=== PATIENT | male | born 1935 | race Caucasian/White ===

== ENCOUNTER → 2016-10-11 | Outpatient (CLI) | payer OTHER ==
[2016-10-11 09:41] LABS: Urine RBC None Seen /hpf (0 - 3)
[2016-10-11 10:06] LABS: Basophils # (auto) 0.1 uL; Basophils % (auto) 0.6 % (0.0-2.0); DEFINITIVE VIEW TRANSMISSION; Eosinophils # (auto) 0.4 uL; Eosinophils % (auto) 2.9 % (0.0-7.0); Hematocrit 43.3 % (41.0-53.0); Hemoglobin 14.1 g/dL (13.5-17.5); Lymphocytes # (auto) 6.4 uL; Lymphocytes % (auto) 46.5 % (10.0-50.0); Mean Corpuscular Hemoglobin 28.7 pg (28.0-32.0); Mean Corpuscular Hgb Conc. 32.7 g/dL (32.0-36.0); Mean Corpuscular Volume 87.9 fL (80.0-100.0); Mean Platelet Volume 8.4 fL (7.4-10.4); Monocytes % (auto) 6.9 % (0.0-12.0); Neutrophils % (auto) 43.1 % (37.0-80.0); Platelet Count (auto) 358 10^3/uL (140-450); Red Cell Distribution Width 14.9 % (11.6-16.0); White Blood Cell 13.8 10^3/uL (4.4-10.8)
[2016-10-11 10:13] LABS: Urine Bilirubin Negative (Negative); Urine Blood Negative /uL (Negative); Urine Color Yellow (Yellow); Urine Glucose Normal (Normal); Urine Ketone Negative (Negative); Urine Nitrite Negative (Negative); Urine Squamous Epithelial Cell FEW /hpf (<5); Urine Urobilinogen Normal (Negative)
[2016-10-11 11:04] LABS: Albumin 3.9 g/dL (3.4-5.0); BUN/Creatinine Ratio 18.5; Bilirubin, Total 0.4 mg/dL (0.2-1.0); Calcium 9.4 mg/dL (8.5-10.1); Potassium 4.2 mmol/L (3.5-5.1); Total Protein 7.7 g/dL (6.4-8.2); Uric Acid 4.4 mg/dL (3.5-7.2)
== END | disposition home or self-care (01) ==
LOC: LAB 07:43
DX: I10 Essential (primary) hypertension (principal); C91.10 Chronic lymphocytic leukemia of B-cell type not having achieved remission; M10.9 Gout, unspecified
CPT/HCPCS: 36415; 80053; 80061; 81001; 84443; 84550; 85025

== ENCOUNTER → 2016-11-22 | Outpatient (CLI) | payer OTHER ==
[2016-11-22 10:44] LABS: Basophils # (auto) 0.1 uL; Basophils % (auto) 0.8 % (0.0-2.0); Eosinophils # (auto) 0.4 uL; Eosinophils % (auto) 2.8 % (0.0-7.0); Hematocrit 43.8 % (41.0-53.0); Lymphocytes # (auto) 4.4 uL; Lymphocytes % (auto) 33.2 % (10.0-50.0); Mean Corpuscular Hemoglobin 28.3 pg (28.0-32.0); Mean Corpuscular Volume 88.6 fL (80.0-100.0); Mean Platelet Volume 7.5 fL (7.4-10.4); Monocytes # (auto) 1.2 uL; Monocytes % (auto) 8.9 % (0.0-12.0); Neutrophils # (auto) 7.2 uL; Neutrophils % (auto) 54.3 % (37.0-80.0); Platelet Count (auto) 382 10^3/uL (140-450); Red Cell Distribution Width 15.3 % (11.6-16.0); White Blood Cell 13.2 10^3/uL (4.4-10.8)
[2016-11-22 11:14] LABS: Albumin 3.8 g/dL (3.4-5.0); BUN/Creatinine Ratio 19.6; Bilirubin, Total 0.3 mg/dL (0.2-1.0); Calcium 9.3 mg/dL (8.5-10.1); Potassium 4.4 mmol/L (3.5-5.1); Total Protein 7.4 g/dL (6.4-8.2)
== END | disposition home or self-care (01) ==
LOC: LAB 09:32
PROVIDERS: ATTEND Internal Medicine
DX: Z88.6 Allergy status to analgesic agent (principal)
CPT/HCPCS: 36415; 80053; 83615; 85025

== ENCOUNTER → 2016-12-11 | Outpatient (CLI) | payer OTHER ==
[~2016-12-11] MED LIST: ALBUTEROL SULF 2.5 MG/0.5ML(0.5%) NEB SOLN ONE
== END | disposition home or self-care (01) ==
LOC: RT 10:39
PROVIDERS: ATTEND Internal Medicine Pulmonary Disease
DX: J84.10 Pulmonary fibrosis, unspecified (principal)
CPT/HCPCS: 94060; 94640

== ENCOUNTER → 2017-02-13 | Outpatient (CLI) | payer OTHER ==
[2017-02-13 09:41] LABS: Urine Bilirubin Negative (Negative); Urine Blood Negative /uL (Negative); Urine Color Yellow (Yellow); Urine Glucose Normal (Normal); Urine Ketone Negative (Negative); Urine Nitrite Negative (Negative); Urine RBC <1 /hpf (0 - 3); Urine Squamous Epithelial Cell FEW /hpf (<5); Urine Urobilinogen Normal (Negative); Urine pH 5.5 (5.0-8.0)
[2017-02-13 09:42] LABS: Basophils # (auto) 0.1 uL; Basophils % (auto) 0.5 % (0.0-2.0); CONDITION Y; Eosinophils # (auto) 0.6 uL; Eosinophils % (auto) 3.9 % (0.0-7.0); Hematocrit 45.7 % (41.0-53.0); Hemoglobin 15.1 g/dL (13.5-17.5); Lymphocytes # (auto) 5.5 uL; Mean Corpuscular Hemoglobin 28.7 pg (28.0-32.0); Mean Corpuscular Volume 87.1 fL (80.0-100.0); Mean Platelet Volume 8.2 fL (7.4-10.4); Monocytes # (auto) 1.1 uL; Monocytes % (auto) 7.2 % (0.0-12.0); Neutrophils # (auto) 7.6 uL; Neutrophils % (auto) 51.4 % (37.0-80.0); Platelet Count (auto) 369 10^3/uL (140-450); Red Cell Distribution Width 14.9 % (11.6-16.0); White Blood Cell 14.8 10^3/uL (4.4-10.8)
[2017-02-13 10:17] LABS: Albumin 3.9 g/dL (3.4-5.0); BUN/Creatinine Ratio 21.3; Bilirubin, Total 0.4 mg/dL (0.2-1.0); Calcium 9.6 mg/dL (8.5-10.1); Potassium 4.4 mmol/L (3.5-5.1); Total Protein 7.5 g/dL (6.4-8.2)
== END | disposition home or self-care (01) ==
LOC: LAB 08:51
PROVIDERS: ATTEND Internal Medicine
DX: I10 Essential (primary) hypertension (principal); M10.9 Gout, unspecified
CPT/HCPCS: 36415; 80053; 80061; 81001; 84443; 84550; 85025

== ENCOUNTER → 2017-05-17 | Outpatient (CLI) | payer OTHER ==
[2017-05-17 07:42] LABS: Basophils # (auto) 0.1 uL; Basophils % (auto) 0.8 % (0.0-2.0); Eosinophils # (auto) 0.5 uL; Eosinophils % (auto) 3.3 % (0.0-7.0); Hematocrit 42.4 % (41.0-53.0); Lymphocytes # (auto) 6.1 uL; Lymphocytes % (auto) 43.1 % (10.0-50.0); Mean Corpuscular Hemoglobin 29.8 pg (28.0-32.0); Mean Corpuscular Volume 90.3 fL (80.0-100.0); Mean Platelet Volume 6.9 fL (6.9-10.8); Monocytes # (auto) 1.2 uL; Monocytes % (auto) 8.2 % (0.0-12.0); Neutrophils # (auto) 6.3 uL; Neutrophils % (auto) 44.6 % (37.0-80.0); Nucleated Red Blood Cells % 0.1 %; Platelet Count (auto) 313 10^3/uL (140-450); Red Cell Distribution Width 14.8 % (11.8-14.3); White Blood Cell 14.1 10^3/uL (4.4-10.8)
[2017-05-17 08:05] LABS: BUN/Creatinine Ratio 17.5; Bilirubin, Total 0.4 mg/dL (0.2-1.0); Potassium 4.4 mmol/L (3.5-5.1); Total Protein 7.8 g/dL (6.4-8.2)
== END ==
LOC: LAB 07:29
PROVIDERS: ATTEND Internal Medicine
DX: C91.10 Chronic lymphocytic leukemia of B-cell type not having achieved remission (principal)
CPT/HCPCS: 36415; 80053; 83615; 85025

== ENCOUNTER 2017-06-21 11:36 | Emergency (ER) | payer OTHER ==
[~2017-06-21] VITALS: Ht 172.7 cm; Wt 83.9 kg
[2017-06-21 11:53] VITALS: BP 106/57
== END 2017-06-21 12:10 | disposition left against medical advice (07) ==
LOC: ER 11:36
DX: R06.02 Shortness of breath (principal); Z53.21 Procedure and treatment not carried out due to patient leaving prior to being seen by health care provider
CPT/HCPCS: 93005

== ENCOUNTER → 2017-06-21 | Outpatient (CLI) | payer OTHER ==
[2017-06-21 12:25] LABS: Albumin 4.1 g/dL (3.4-5.0); Bilirubin, Direct 0.2 mg/dL (0-0.2); Bilirubin, Total 0.4 mg/dL (0.2-1.0); Total Protein 8.1 g/dL (6.4-8.2)
== END | disposition home or self-care (01) ==
LOC: LAB 11:12
PROVIDERS: ATTEND Internal Medicine Pulmonary Disease
DX: J84.112 Idiopathic pulmonary fibrosis (principal)
CPT/HCPCS: 36415; 80076

== ENCOUNTER 2017-08-08 14:51 | Inpatient (IN) | payer OTHER ==
[~2017-08-08] VITALS: Ht 172.7 cm; Wt 71.2 kg
[2017-08-08] MEDS ORDERED: FUROSEMIDE 40 MG/4 ML VIAL IV ONE (15:30)
[2017-08-08 15:44] LABS: Basophils # (auto) 0.1 uL; Basophils % (auto) 1.3 % (0.0-2.0); Eosinophils # (auto) 0.3 uL; Eosinophils % (auto) 2.4 % (0.0-7.0); Hematocrit 43.6 % (41.0-53.0); Lymphocytes # (auto) 2.8 uL; Lymphocytes % (auto) 26.2 % (10.0-50.0); Mean Corpuscular Hemoglobin 29.2 pg (28.0-32.0); Mean Corpuscular Hgb Conc. 32.2 g/dL (32.0-36.0); Mean Corpuscular Volume 90.7 fL (80.0-100.0); Monocytes % (auto) 9.2 % (0.0-12.0); Neutrophils # (auto) 6.5 uL; Neutrophils % (auto) 60.9 % (37.0-80.0); Nucleated Red Blood Cells % 0.3 %; Platelet Count (auto) 295 10^3/uL (140-450); Red Blood Cells 4.81 10^6/uL (4.5-5.90); Red Cell Distribution Width 15.1 % (11.8-14.3); White Blood Cell 10.7 10^3/uL (4.4-10.8)
[2017-08-08 15:59] LABS: Albumin 3.5 g/dL (3.4-5.0); BUN/Creatinine Ratio 15.3; Calcium 8.8 mg/dL (8.5-10.1); Magnesium 2.3 mg/dL (1.6-2.6); Potassium 4.5 mmol/L (3.5-5.1)
[2017-08-08 16:04] LABS: Bilirubin, Total 0.4 mg/dL (0.2-1.0); Total Protein 7.2 g/dL (6.4-8.2)
[2017-08-08] MEDS ORDERED: FENO1TAB42 PO (18:23)
[2017-08-08] MEDS ORDERED: NINT1CAP2 PO (18:23)
[2017-08-08] MEDS ORDERED: CARV3.1240 PO (18:23)
[2017-08-08] MEDS ORDERED: LACTULOSE 20Gm/30ML SOLN PO PRN (20:30)
[2017-08-08] MEDS ORDERED: NITROGLYCERIN 0.4 MG SL TAB SL PRN (20:30)
[2017-08-08] MEDS ORDERED: MORPHINE SULFATE 4 MG/ML SYR/VIAL IV PRN (20:30)
[2017-08-08] MEDS ORDERED: PANTOPRAZOLE 40 MG/10 ML VIAL IV ONE (21:00)
[2017-08-08] MEDS ORDERED: ASPirin 81 mg TAB PO ONE (21:00)
[2017-08-08] MEDS: ENOXAPARIN SOD 30 MG/0.3 ML SYRINGE SC SCH (21:54)
[2017-08-08 22:00] VITALS: BP 161/79
[2017-08-08] MEDS: CARVEDILOL 3.125 MG TAB PO SCH (22:00)
[2017-08-08] MEDS: ATORVASTATIN 20 MG TAB PO SCH (22:00)
[2017-08-08 22:30] VITALS: BP 161/79
[2017-08-08] MEDS ORDERED: ASPI-492 PO (22:40)
[2017-08-09 05:00] VITALS: BP 135/61
[2017-08-09] MEDS ORDERED: FUROSEMIDE 40 MG/4 ML VIAL IV SCH (06:00)
[2017-08-09 06:21] LABS: Basophils # (auto) 0.1 uL; Basophils % (auto) 1.3 % (0.0-2.0); Eosinophils # (auto) 0.3 uL; Eosinophils % (auto) 3.2 % (0.0-7.0); Hematocrit 40.2 % (41.0-53.0); Hemoglobin 13.2 g/dL (13.5-17.5); Lymphocytes # (auto) 3.2 uL; Lymphocytes % (auto) 34.4 % (10.0-50.0); Mean Corpuscular Hemoglobin 29.3 pg (28.0-32.0); Mean Corpuscular Hgb Conc. 32.7 g/dL (32.0-36.0); Mean Corpuscular Volume 89.5 fL (80.0-100.0); Monocytes # (auto) 0.8 uL; Monocytes % (auto) 9.2 % (0.0-12.0); Neutrophils # (auto) 4.8 uL; Neutrophils % (auto) 51.9 % (37.0-80.0); Nucleated Red Blood Cells % 0.2 %; Platelet Count (auto) 256 10^3/uL (140-450); Red Blood Cells 4.49 10^6/uL (4.5-5.90); Red Cell Distribution Width 14.4 % (11.8-14.3); White Blood Cell 9.2 10^3/uL (4.4-10.8)
[2017-08-09 06:40] LABS: Albumin 3.4 g/dL (3.4-5.0); BUN/Creatinine Ratio 16.3; Bilirubin, Total 0.6 mg/dL (0.2-1.0); Calcium 8.5 mg/dL (8.5-10.1); Potassium 4.1 mmol/L (3.5-5.1); Total Protein 6.4 g/dL (6.4-8.2)
[2017-08-09 09:00] VITALS: BP 120/60
[2017-08-09] MEDS ORDERED: POTASSIUM CHL 20 Meq TABLET PO ONE (09:45)
[2017-08-09] MEDS ORDERED: FUROSEMIDE 20 MG/2 ML VIAL IV ONE (09:45)
[2017-08-09] MEDS ORDERED: METOPROLOL SUCCINATE XL 50 MG TAB PO SCH (10:00)
[2017-08-09] MEDS: PANTOPRAZOLE 40 MG/10 ML VIAL IV SCH (10:05)
[2017-08-09] MEDS: ASPirin 81 mg TAB PO SCH (10:06)
[2017-08-09] MEDS: CARVEDILOL 3.125 MG TAB PO SCH ×2 (10:09→21:57)
[2017-08-09 13:00] VITALS: BP 126/70
[2017-08-09 17:00] VITALS: BP 157/75
[2017-08-09] MEDS: FUROSEMIDE 40 MG/4 ML VIAL IV SCH (18:17)
[2017-08-09 20:00] VITALS: BP 135/79
[2017-08-09] MEDS: ENOXAPARIN SOD 30 MG/0.3 ML SYRINGE SC SCH (21:03)
[2017-08-09 21:54] VITALS: BP 135/79
[2017-08-09] MEDS: ATORVASTATIN 20 MG TAB PO SCH (21:57)
[2017-08-10 04:42] VITALS: BP 121/57
[2017-08-10 06:04] LABS: BUN/Creatinine Ratio 18.1; Calcium 9.1 mg/dL (8.5-10.1); Potassium 3.4 mmol/L (3.5-5.1)
[2017-08-10] MEDS: FUROSEMIDE 40 MG/4 ML VIAL IV SCH (06:09)
[2017-08-10 08:16] VITALS: BP 118/76
[2017-08-10] MEDS: ASPirin 81 mg TAB PO SCH (09:17)
[2017-08-10] MEDS: CARVEDILOL 3.125 MG TAB PO SCH (09:17)
[2017-08-10] MEDS: PANTOPRAZOLE 40 MG/10 ML VIAL IV SCH (09:17)
[2017-08-10] MEDS ORDERED: POTASSIUM CHL 20 Meq TABLET PO ONE (09:45)
[2017-08-10 11:42] VITALS: BP 104/65
[2017-08-10 16:38] VITALS: BP 102/65
[2017-08-10] MEDS: ENOXAPARIN SOD 30 MG/0.3 ML SYRINGE SC SCH (21:11)
[2017-08-10 21:36] VITALS: BP 118/62
[2017-08-10 21:40] VITALS: BP 118/62
== END 2017-08-10 22:50 | disposition home or self-care (01) | DRG 291 ==
LOC: EDBD 14:51 → ER 14:56 → TELE 14:57 → TELE-WESTW 22:05
PROVIDERS: ADMIT Family Medicine; ATTEND Internal Medicine Pulmonary Disease
DX: I11.0 Hypertensive heart disease with heart failure (principal); J96.21 Acute and chronic respiratory failure with hypoxia; N17.9 Acute kidney failure, unspecified; I24.8 Other forms of acute ischemic heart disease; E44.1 Mild protein-calorie malnutrition; I25.5 Ischemic cardiomyopathy; J84.112 Idiopathic pulmonary fibrosis; E78.00 Pure hypercholesterolemia, unspecified; E87.6 Hypokalemia; I25.10 Atherosclerotic heart disease of native coronary artery without angina pectoris; K59.00 Constipation, unspecified; E78.5 Hyperlipidemia, unspecified; I50.43 Acute on chronic combined systolic (congestive) and diastolic (congestive) heart failure; Z85.6 Personal history of leukemia; Z95.1 Presence of aortocoronary bypass graft; Z99.81 Dependence on supplemental oxygen; Z90.89 Acquired absence of other organs; Z98.62 Peripheral vascular angioplasty status; Z79.82 Long term (current) use of aspirin; Z79.899 Other long term (current) drug therapy; Z68.23 Body mass index [BMI] 23.0-23.9, adult
CPT/HCPCS: 36415; 71010; 80048; 80053; 80061; 83735; 83880; 84484; 85025; 85379; 93005; 93306; 96372; 96374; 96375; 99291; C9113

== ENCOUNTER → 2017-08-27 | Outpatient (CLI) | payer OTHER ==
[~2017-08-27] MED LIST changes: -ALBUTEROL SULF 2.5 MG/0.5ML(0.5%) NEB SOLN ONE; +ASPI-492 PO; +CARV3.1240 PO; +FENO1TAB42 PO; +NINT1CAP2 PO
[2017-08-27 07:43] LABS: Basophils # (auto) 0.1 uL; Basophils % (auto) 1.2 % (0.0-2.0); Eosinophils # (auto) 0.5 uL; Eosinophils % (auto) 4.5 % (0.0-7.0); Hematocrit 51.1 % (41.0-53.0); Hemoglobin 16.2 g/dL (13.5-17.5); Lymphocytes # (auto) 5.1 uL; Lymphocytes % (auto) 42.2 % (10.0-50.0); Mean Corpuscular Hemoglobin 28.2 pg (28.0-32.0); Mean Corpuscular Hgb Conc. 31.7 g/dL (32.0-36.0); Mean Corpuscular Volume 89.1 fL (80.0-100.0); Monocytes # (auto) 0.9 uL; Monocytes % (auto) 7.8 % (0.0-12.0); Neutrophils # (auto) 5.4 uL; Neutrophils % (auto) 44.3 % (37.0-80.0); Nucleated Red Blood Cells % 0.1 %; Platelet Count (auto) 335 10^3/uL (140-450); Red Blood Cells 5.73 10^6/uL (4.5-5.90); Red Cell Distribution Width 13.9 % (11.8-14.3); White Blood Cell 12.1 10^3/uL (4.4-10.8)
[2017-08-27 08:17] LABS: BUN/Creatinine Ratio 23.7; Calcium 9.3 mg/dL (8.5-10.1); Potassium 4.1 mmol/L (3.5-5.1)
== END | disposition home or self-care (01) ==
LOC: LAB 07:13
PROVIDERS: ATTEND Family Medicine
DX: I10 Essential (primary) hypertension (principal); E78.2 Mixed hyperlipidemia
CPT/HCPCS: 36415; 80048; 80061; 85025

== ENCOUNTER 2017-09-01 20:12 | Emergency (ER) | payer OTHER ==
[~2017-09-01] VITALS: Ht 152.4 cm; Wt 86.2 kg
[2017-09-01] MEDS ORDERED: SODIUM BICARBONATE 8.4% INJ 50ML SYRINGE IV ONE (20:13)
[2017-09-01] MEDS ORDERED: CALCIUM CHLOR(10%) 100MG/ML 10ML SYRINGE IV ONE (20:13)
[2017-09-01] MEDS ORDERED: DOPamine 1600mCg/ml 400MG/250ml NSorD5 KIT/BAG IV ONE (20:13)
[2017-09-01] MEDS ORDERED: EPINEPHrine HCL 1 MG/10 ML SYRG IV ONE (20:13)
[2017-09-01] MEDS ORDERED: methylPREDNISolone SOD SUCC 125 MG/2 ML VL ONE (20:30)
[2017-09-01] MEDS ORDERED: SODIUM BICARBONATE 8.4 % INJ 50ML VIAL IV ONE (20:34)
[2017-09-01] MEDS ORDERED: SODIUM BICARBONATE 8.4% INJ 50ML SYRINGE ONE (20:34)
[2017-09-01] MEDS ORDERED: SODIUM BICARBONATE 50ML VIAL 100 ML in SODIUM CHL 0.9% 1,000 ML IV SCH (20:45)
== END 2017-09-01 23:39 | disposition home or self-care (01) ==
LOC: ER 20:12 → EDBD 20:12 → EDUNIT# 20:12 → ER 23:39
DX: I46.9 Cardiac arrest, cause unspecified (principal); I11.0 Hypertensive heart disease with heart failure; I50.9 Heart failure, unspecified; Z95.1 Presence of aortocoronary bypass graft; Z90.89 Acquired absence of other organs; Z79.82 Long term (current) use of aspirin; Z79.899 Other long term (current) drug therapy
CPT/HCPCS: 36600; 82805; 87070; 87205; 92950; 93005; 99285; J0171; J1265; J2930